=== PATIENT | male | born 1935 | race Caucasian/White ===

== ENCOUNTER 2016-11-16 22:30 | Observation (INO) | payer OTHER ==
[~2016-11-16] VITALS: Ht 162.6 cm; Wt 70.5 kg
[2016-11-16 22:30] VITALS: BP 118/61; PULSE 56; RESP 18; O2SAT 96
[~2016-11-16 22:30] MED LIST: ACET325 PO; ALBU6.7H INH; ASPI325T PO; CELE20TA PO; DONE10TA14 PO; FLON0.053; METO100T9 PO; NIFE30TA2 PO; NITR.4 SL; REME15TA PO; ULTR50TA PO; ZOCO40TA PO
[2016-11-16 22:41] VITALS: BP 118/61; PULSE 56; RESP 18; TEMP 98.4; O2SAT 93
[2016-11-16] MEDS ORDERED: DONE10TA7 PO (22:54)
[2016-11-16] MEDS ORDERED: ASPI325T PO (22:54)
[2016-11-16] MEDS ORDERED: ATOR40TA16 PO (22:54)
[2016-11-16] MEDS ORDERED: FLUT1SPR5 EACH NARE (22:54)
[2016-11-16] MEDS ORDERED: ALBU6.7H INH (22:54)
[2016-11-16] MEDS ORDERED: METO50TA11 PO (22:54)
[2016-11-16] MEDS ORDERED: REME15TA PO (22:54)
[2016-11-16] MEDS ORDERED: NITR1SUB3 SL (22:54)
[2016-11-16] MEDS ORDERED: ZOCO40TA PO (22:54)
[2016-11-16] MEDS ORDERED: CELE10TA PO (22:54)
[2016-11-16 22:57] VITALS: O2SAT 96
[2016-11-16 23:00] VITALS: BP 119/57; PULSE 56; RESP 16; O2SAT 96
[2016-11-16] MEDS ORDERED: MORPHINE SULFATE 4 MG/ML INJ IV PUSH ONE (23:00)
[2016-11-16] MEDS ORDERED: ASPIRIN 81 MG CHEW TAB PO ONE (23:00)
[2016-11-16] MEDS ORDERED: NITROGLYCERIN 2% OINT 1 GM PACKET TOP ONE (23:00)
[2016-11-16] MEDS: SODIUM CHLORIDE 0.9% FLUSH 10 ML FLUSH IVF PRN (23:08)
--- NOTE | 2016-11-16 23:19 | RADRPT ---
EXAM DATE/TIME: 11/16/2016 22:59 [facility] COMPARISON: CHEST SINGLE AP, April 14, 2015, 9:05. INDICATIONS : Chest pain. MEDICAL HISTORY : Chronic obstructive pulmonary disease. Asthma. SURGICAL HISTORY : Carotid stent. ENCOUNTER: Initial ACUITY: 1 day PAIN SCORE: 8/10 LOCATION: Bilateral chest FINDINGS: A single view of the chest demonstrates the lungs to be symmetrically aerated and clear biapical capp ing. A 1 cm dense nodule projects over the left apex. Lungs are otherwise clear with minimal atelecta tic changes above the hemidiaphragms. No effusions. Heart size is normal. Osseous structures are inta ct with degenerative spurring of the dorsal spine. CONCLUSION: 1. Biapical capping with a dense 1 cm nodule projecting over the left apex. Increased density suggest s a bony origin. 2. Except for some minimal atelectatic changes above the hemidiaphragms, lungs are otherwise clear. Erik Fay MD on November 16, 2016 at 23:11 Board Certified Radiologist. This report was verified electronically.
[2016-11-16 23:27] LABS: AUTOMATED NEUTROPHIL # 3.1 TH/MM3 (1.8-7.7); BASOPHIL # 0.1 TH/MM3 (0-0.2); BASOPHIL % 1.1 % (0.0-2.0); EOSINOPHIL # 0.5 TH/MM3 (0-0.4); EOSINOPHIL % 7.7 % (0.0-4.0); HEMATOCRIT 31.8 % (39.0-51.0); HEMO FLAGS DIFF FINAL; LYMPH % 24.9 % (9.0-44.0); LYMPHOCYTE # 1.5 TH/MM3 (1.0-4.8); MEAN CELL VOLUME 93.2 FL (80.0-100.0); MEAN CORPUSCULAR HEMOGLOBIN 31.4 PG (27.0-34.0); MEAN CORPUSCULAR HGB CONC 33.7 % (32.0-36.0); MONO % 13.6 % (0.0-8.0); NEUT % 52.7 % (16.0-70.0); PLATELET COUNT 144 TH/MM3 (150-450); RED BLOOD COUNT 3.41 MIL/MM3 (4.50-5.90); RED CELL DISTRIBUTION WIDTH 14.2 % (11.6-17.2); WHITE BLOOD COUNT 5.9 TH/MM3 (4.0-11.0)
[2016-11-16 23:40] LABS: ANION GAP 5 MEQ/L (5-15); BICARBONATE 29.8 MEQ/L (21.0-32.0); BLOOD UREA NITROGEN 29 MG/DL (7-18); CHLORIDE 109 MEQ/L (98-107); GLOMERULAR FILTRATION RATE 41 ML/MIN (>89); MAGNESIUM 2.1 MG/DL (1.5-2.5); POTASSIUM 4.2 MEQ/L (3.5-5.1); SODIUM (NA) 144 MEQ/L (136-145)
[2016-11-16 23:43] LABS: CREATINE KINASE 129 U/L (39-308)
[2016-11-16 23:52] LABS: APTT (PATIENT) 24.5 SEC (24.3-30.1); PROTHROMBIN TIME - PATIENT 10.7 SEC (9.8-11.6)
[2016-11-16 23:55] LABS: CKMB 2.5 NG/ML (0.5-3.6)
--- NOTE | 2016-11-17 00:19 | PD ---
HPI . Chest pain Chief Complaint: Chest Pain Time Seen by Provider: 22:47 Travel History International Travel<30 days: No Contact w/Intl Traveler<30days: No Traveled to known affect area: No History of Present Illness HPI This patient presents with a chief complaint of chest pain. Onset was one hour ago. He rates it as 7-8/10. He describes it as a pressure-like sensation. He has associated numbness and tingling in his left hand. He has had some nausea and shortness of breath which are improving. He was treated prior to arrival with sublingual not glycerin 3 without relief. He states that he has been off of his aspirin for the last 6 days because of an impending epidural injection. He states that the pain awakened him from sleep. He notes no modifying factors. PFSH Past Medical History Arthritis: Yes Asthma: Yes Blood Disorders: No Anxiety: Yes Depression: Yes Heart Rhythm Problems: No Cancer: No Cardiac Catheterization: Yes Cardiovascular Problems: No High Cholesterol: Yes Chest Pain: Yes Congestive Heart Failure: No COPD: Yes Coronary Artery Disease: Yes Dementia: Yes Diabetes: No Diminished Hearing: No Endocrine: No Gastrointestinal Disorders: Yes GERD: Yes Genitourinary: Yes (KIDNEY FUNCTION DECREASED) Hiatal Hernia: Yes Immune Disorder: No Implanted Vascular Access Dvce: Yes Musculoskeletal: Yes Neurologic: Yes Psychiatric: No Reproductive: No Respiratory: Yes Immunizations Current: Yes Myocardial Infarction: Yes PNEUMOCCOCAL Vaccine (Year): 1 Past Surgical History Abdominal Surgery: Yes (HERNIA REPAIR) Body Medical Devices: pt has 5 stents Cardiac Surgery: Yes (stents) Coronary Artery Bypass Graft: No Other Surgery: Yes Social History Alcohol Use: No Tobacco Use: No Substance Use: No Allergies-Medications (Allergen,Severity, Reaction): Coded Allergies: No Known Allergies (Verified , 11/16/16) Reported Meds & Prescriptions Reported Meds & Active Scripts Active Reported Celexa (Citalopram Hydrobromide) 10 Mg Tab 30 Mg PO DAILY Donepezil 10 Mg Tab 10 Mg PO HS Flonase Nasal [place] (Fluticasone Nasal [place]) 50 Mcg/Act [place] 50 Mcg EACH NARE BID Metoprolol Succinate ER 24 HR (Metoprolol Succinate) 50 Mg Tab 50 Mg PO DAILY Remeron (Mirtazapine) 15 Mg Tab 15 Mg PO HS Aspirin 325 Mg Tab 325 Mg PO DAILY Proventil Hfa 6.7 GM Inh (Albuterol Sulfate) 90 Mcg/Act Aer 2 Puff INH Q4-6H PRN Nitroglycerin SL (Nitroglycerin) 0.4 Mg Subl 0.4 Mg SL DIRECTED PRN ONE TABLET UNDER THE TONGUE NEEDED FOR CHEST PAIN, MAY REPEAT EVERY FIVE MINUTES FOR A TOTAL OF 3 DOSES OR CALL 911 IF NO RELIEF Atorvastatin (Atorvastatin Calcium) 40 Mg Tab 40 Mg PO HS Review of Systems Except as stated in HPI: all other systems reviewed are Neg Cardiovascular: Positive: Chest Pain or Discomfort Respiratory: Positive: Shortness of Breath Gastrointestinal: Positive: Nausea, No: Vomiting Musculoskeletal: Positive: Pain Physical Exam Narrative GENERAL: Awake and alert and in no acute distress. SKIN: Warm and dry. HEAD: Atraumatic. Normocephalic. EYES: Pupils equal and round. Extraocular movements are intact. ENT: No nasal bleeding or discharge. Mucous membranes pink and moist. NECK: Trachea midline. Neck is supple. CARDIOVASCULAR: Regular rate and rhythm. Heart sounds are normal. RESPIRATORY: No accessory muscle use. Lungs are clear with good air movement throughout. Chest wall is nontender. GASTROINTESTINAL: Abdomen soft, non-tender, nondistended. MUSCULOSKELETAL: No obvious deformities. No edema. NEUROLOGICAL: Awake and alert. No obvious cranial nerve deficits. Motor grossly within normal limits. Normal speech. PSYCHIATRIC: Appropriate mood and affect; insight and judgment normal. Data Data Last Documented VS Vital Signs Date Time Temp Pulse Resp B/P Pulse Ox O2 Delivery O2 Flow Rate FiO2 11/16/16 22:57 96 Room Air 11/16/16 22:41 98.4 56 18 118/61 Orders Basic Metabolic Panel (Bmp) (11/16/16 22:48) Ckmb (Isoenzyme) Profile (11/16/16 22:48) Complete Blood Count With Diff (11/16/16 22:48) Magnesium (Mg) (11/16/16 22:48) Prothrombin Time / Inr (Pt) (11/16/16 22:48) Act Partial Throm Time (Ptt) (11/16/16 22:48) Troponin I (11/16/16 22:48) Chest, Single Ap (11/16/16 22:48) Ecg Monitoring (11/16/16 22:48) Iv Access Insert/Monitor (11/16/16 22:48) Oximetry (11/16/16 22:48) Oxygen Administration (11/16/16 22:48) Aspirin Chew (Aspirin Chew) (11/16/16 23:00) Morphine Inj (Morphine Inj) (11/16/16 23:00) Nitroglycerin 2% Oint (Nitroglycerin 2% (11/16/16 23:00) Sodium Chloride 0.9% Flush (Ns Flush) (11/16/16 23:00) CKMB (11/16/16 22:55) CKMB% (11/16/16 22:55) Labs Laboratory Tests Test 11/16/16 22:55 White Blood Count 5.9 TH/MM3 Red Blood Count 3.41 MIL/MM3 Hemoglobin 10.7 GM/DL Hematocrit 31.8 % Mean Corpuscular Volume 93.2 FL Mean Corpuscular Hemoglobin 31.4 PG Mean Corpuscular Hemoglobin 33.7 % Concent Red Cell Distribution Width 14.2 % Platelet Count 144 TH/MM3 Mean Platelet Volume 8.9 FL Neutrophils (%) (Auto) 52.7 % Lymphocytes (%) (Auto) 24.9 % Monocytes (%) (Auto) 13.6 % Eosinophils (%) (Auto) 7.7 % Basophils (%) (Auto) 1.1 % Neutrophils # (Auto) 3.1 TH/MM3 Lymphocytes # (Auto) 1.5 TH/MM3 Monocytes # (Auto) 0.8 TH/MM3 Eosinophils # (Auto) 0.5 TH/MM3 Basophils # (Auto) 0.1 TH/MM3 CBC Comment DIFF FINAL Differential Comment Prothrombin Time 10.7 SEC Prothromb Time International 1.0 RATIO Ratio Activated Partial 24.5 SEC Thromboplast Time Sodium Level 144 MEQ/L Potassium Level 4.2 MEQ/L Chloride Level 109 MEQ/L Carbon Dioxide Level 29.8 MEQ/L Anion Gap 5 MEQ/L Blood Urea Nitrogen 29 MG/DL Creatinine 1.62 MG/DL Estimat Glomerular Filtration 41 ML/MIN Rate Random Glucose 97 MG/DL Calcium Level 8.2 MG/DL Magnesium Level 2.1 MG/DL Total Creatine Kinase 129 U/L Creatine Kinase MB 2.5 NG/ML Troponin I LESS THAN 0.02 NG/ML MDM Medical Decision Making Medical Screen Exam Complete: Yes Emergency Medical Condition: Yes Medical Record Reviewed: Yes (this patient had a negative nuclear stress test on 04/15/15.) Interpretation(s) EKG showed a normal sinus rhythm with no acute ischemic changes. His EKG was unchanged from previous. Differential Diagnosis Differential diagnosis of chest pain includes but is not limited to musculoskeletal pain, pulmonary embolism, acute coronary syndrome, pneumonia, pleurisy Narrative Course This patient presents with a chief complaint of chest pain. He has reported known history of coronary artery disease. He did have a negative nuclear stress test about a urinary half ago. His chest pain wasn't not relieved by nitroglycerin prior to arrival. He has had a routine cardiac workup. The workup is negative. He will be admitted to the chest pain center for further evaluation and treatment. Diagnosis Primary Impression: Chest pain Qualified Code: R07.9 - Chest pain, unspecified type Admitting Information Admitting Physician Requests: Observation Condition: Stable Mariela Barrios MD Nov 17, 2016 00:19
[2016-11-17 00:30] VITALS: BP 111/58; PULSE 55; RESP 16; O2SAT 96
[2016-11-17] MEDS ORDERED: MORPHINE SULFATE 8 MG/ML INJ IV PUSH PRN (00:30)
[2016-11-17] MEDS ORDERED: ONDANSETRON HCL 4 MG/2 ML VIAL IV PRN (00:30)
[2016-11-17] MEDS ORDERED: SODIUM CHLORIDE 0.9% FLUSH 10 ML FLUSH IVF PRN (00:30)
[2016-11-17] MEDS ORDERED: SODIUM CHLORIDE 0.9% FLUSH 10 ML FLUSH IV FLUSH SCH (00:30)
[2016-11-17] MEDS ORDERED: SODIUM CHLORIDE 0.9% FLUSH 10 ML FLUSH IV FLUSH PRN (00:30)
[2016-11-17] MEDS: SODIUM CHLORIDE 0.9% FLUSH 10 ML FLUSH IV FLUSH SCH ×3 (00:57→09:01)
[2016-11-17] MEDS: SODIUM CHLORIDE 0.9% FLUSH 10 ML FLUSH IVF PRN (00:57)
[2016-11-17 02:03] VITALS: BP 117/65; PULSE 63; RESP 20; TEMP 97.6; O2SAT 94
[2016-11-17 03:03] LABS: CREATINE KINASE 116 U/L (39-308)
[2016-11-17 03:15] LABS: CKMB 2.3 NG/ML (0.5-3.6)
[2016-11-17 04:00] VITALS: PULSE 55
[2016-11-17] MEDS ORDERED: MORPHINE SULFATE 4 MG/ML INJ IV PRN ×2 (05:30→06:00)
[2016-11-17] MEDS ORDERED: ACETAMINOPHEN 500 MG CPLT PO PRN (05:30)
[2016-11-17] MEDS ORDERED: ACETAMINOPHEN/HYDROcodone 325 MG/5 MG TAB PO PRN (05:45)
[2016-11-17 06:12] LABS: CREATINE KINASE 112 U/L (39-308)
[2016-11-17 06:25] LABS: CKMB 2.3 NG/ML (0.5-3.6)
[2016-11-17 07:38] VITALS: BP 102/56; PULSE 55; RESP 16; TEMP 98; O2SAT 95
[2016-11-17 07:50] VITALS: O2SAT 93
[2016-11-17 11:00] VITALS: BP 110/55; PULSE 52; RESP 17; TEMP 98.7; O2SAT 94
--- NOTE | 2016-11-17 13:16 | HHI.HP ---
HPI Primary Care Physician Non-Staff Chief Complaint Chest pain History of Present Illness This is a 81-year-old male with history of CAD and stents presents to ED with a complaint of chest discomfort. He states it began yesterday. In some fresh trimming. He cannot and waking from his nap he developed 3 quick pains left- sided chest and that discomfort and turned into a heaviness which lasted for several hours. He was short of breath, nauseous, and diaphoretic. States it is similar to when needing stents in the past. He follows Dr. Pitts cardiology on an outpatient basis and cannot recall recent stress testing in the office. However upon review records she had a nonischemic Lexiscan March 2015 at this facility. He had a catheter in 2011 showing disease but also showing patent stent. Denies recent illness. Denies fevers or chills. Review of Systems General: Patient denies fevers, chills recent, and recent travel HEENT: Patient denies headache, sore throat, difficulty swallowing. Cardiovascular: Has the chest discomfort as mentioned above. Denies sensation of heart beating rapidly or irregularly. No syncope. He was diaphoretic Respiratory: He was short of breath. Denies inspirational chest discomfort. Denies coughing wheezing or hemoptysis. GI: He was nauseous. Patient denies vomiting, diarrhea, abdominal pain, bloody stools. Musculoskeletal: Patient denies joint pain or edema. Denies calf pain or edema. Neurovascular: Patient denies numbness, tingling, weakness in extremities. Denies headache. Endocrine: Denies polyuria and polydipsia. Hematologic: Denies easy bruising. Skin: Denies rash or itching. Past Family Social History Allergies: Coded Allergies: No Known Allergies (Verified , 11/16/16) Past Medical History Coronary disease with stenting. Past history tobacco abuse but quit smoking in 1988. Hypertension, hyperlipidemia. Denies diabetes. Past Surgical History Heart catheterizations with interventions. Hernia repair. Reported Medications Reported Meds & Active Scripts Active Reported Celexa (Citalopram Hydrobromide) 10 Mg Tab 30 Mg PO DAILY Donepezil 10 Mg Tab 10 Mg PO HS Flonase Nasal [place] (Fluticasone Nasal [place]) 50 Mcg/Act [place] 50 Mcg EACH NARE BID Metoprolol Succinate ER 24 HR (Metoprolol Succinate) 50 Mg Tab 50 Mg PO DAILY Remeron (Mirtazapine) 15 Mg Tab 15 Mg PO HS Aspirin 325 Mg Tab 325 Mg PO DAILY Proventil Hfa 6.7 GM Inh (Albuterol Sulfate) 90 Mcg/Act Aer 2 Puff INH Q4-6H PRN Nitroglycerin SL (Nitroglycerin) 0.4 Mg Subl 0.4 Mg SL DIRECTED PRN ONE TABLET UNDER THE TONGUE NEEDED FOR CHEST PAIN, MAY REPEAT EVERY FIVE MINUTES FOR A TOTAL OF 3 DOSES OR CALL 911 IF NO RELIEF Atorvastatin (Atorvastatin Calcium) 40 Mg Tab 40 Mg PO HS Active Ordered Medications Current Medications Medications (Trade) Dose Ordered Sig/Marce Route Start Time Stop Time Status Last Admin (NS Flush) 2 ml UNSCH PRN IVF 11/16/16 23:00 11/17/16 00:57 (Zofran Inj) 4 mg Q6H PRN IV 11/17/16 00:30 11/17/16 00:57 (NS Flush) 2 ml BID IV FLUSH 11/17/16 00:30 11/17/16 00:57 (Tylenol) 1,000 mg Q8H PRN PO 11/17/16 05:30 ([place] 5-325 Mg) 1 tab Q6H PRN PO 11/17/16 05:45 (Morphine Inj) 2 mg Q2H PRN IV 11/17/16 06:00 Family History There is family history of CAD. Social History Patient quit smoking 1988 but prior that he smoked one pack of cigarettes daily 35 years. Denies alcohol or illicit drugs. He lives with his . Physical Exam Vital Signs Vital Signs Date Time Temp Pulse Resp B/P (MAP) Pulse Ox O2 Delivery O2 Flow Rate FiO2 11/17/16 07:50 93 21 11/17/16 07:38 98.0 55 16 102/56 (71) 95 11/17/16 04:00 55 11/17/16 02:08 18 11/17/16 02:03 97.6 63 20 117/65 (82) 94 11/17/16 00:30 55 16 111/58 (75) 96 Room Air 11/16/16 23:00 56 16 119/57 (77) 96 Room Air 11/16/16 22:57 96 Room Air 11/16/16 22:57 96 Room Air 11/16/16 22:41 98.4 56 18 118/61 (80) 93 11/16/16 22:30 56 18 118/61 (80) 96 Room Air Physical Exam GENERAL: This is a well-nourished, well-developed patient, in no apparent distress. Patient speaks in clear complete sentences. Patient is pleasant. HEENT: Head is atraumatic and normocephalic. Neck is supple without lymphadenopathy and trachea is midline. No JVD or carotid bruits. CARDIOVASCULAR: Regular rate and rhythm without murmurs, gallops, or rubs. RESPIRATORY: Clear to auscultation. Breath sounds equal bilaterally. No wheezes , rales, or rhonchi. Chest wall is nontender. No use of accessory muscles. GASTROINTESTINAL: Abdomen is nontender, nondistended. Abdomen soft. No obvious pulsatile mass or bruit. No CVA tenderness. Strong femoral pulses bilaterally. Normal bowel sounds in all quadrants. MUSCULOSKELETAL: Patient is moving upper and lower extremities freely. No calf tenderness or edema, no Homans sign. Strong pulses in upper and lower extremities. NEUROLOGICAL: Patient is alert and oriented. Cranial nerves 2-12 are grossly intact. No focal deficits and speech is clear. SKIN: No rash and turgor is normal. Laboratory Laboratory Tests Test 11/16/16 22:55 11/17/16 02:00 11/17/16 04:51 White Blood Count 5.9 Red Blood Count 3.41 Hemoglobin 10.7 Hematocrit 31.8 Mean Corpuscular Volume 93.2 Mean Corpuscular Hemoglobin 31.4 Mean Corpuscular Hemoglobin Concent 33.7 Red Cell Distribution Width 14.2 Platelet Count 144 Mean Platelet Volume 8.9 Neutrophils (%) (Auto) 52.7 Lymphocytes (%) (Auto) 24.9 Monocytes (%) (Auto) 13.6 Eosinophils (%) (Auto) 7.7 Basophils (%) (Auto) 1.1 Neutrophils # (Auto) 3.1 Lymphocytes # (Auto) 1.5 Monocytes # (Auto) 0.8 Eosinophils # (Auto) 0.5 Basophils # (Auto) 0.1 CBC Comment DIFF FINAL Differential Comment Prothrombin Time 10.7 Prothromb Time International Ratio 1.0 Activated Partial Thromboplast Time 24.5 Blood Urea Nitrogen 29 Creatinine 1.62 Random Glucose 97 Calcium Level 8.2 Magnesium Level 2.1 Sodium Level 144 Potassium Level 4.2 Chloride Level 109 Carbon Dioxide Level 29.8 Anion Gap 5 Estimat Glomerular Filtration Rate 41 Total Creatine Kinase 129 116 112 Creatine Kinase MB 2.5 2.3 2.3 Troponin I LESS THAN 0.02 LESS THAN 0.02 LESS THAN 0.02 Result Diagram: 11/16/16225411/16/162254 Imaging Last 48 hours Impressions Chest X-Ray 11/16/162247 Signed Impressions: Service Date/Time: Wednesday, November 16, 2016 22:59 - CONCLUSION: 1. Biapical capping with a dense 1 cm nodule projecting over the left apex. Increased density suggests a bony origin. 2. Except for some minimal atelectatic changes above the hemidiaphragms, lungs are otherwise clear. Erik Fay MD Course EKGs have sinus rhythm without significant ST segment depressions or elevations. Caprini VTE Risk Assessment Caprini VTE Risk Assessment: Mod/High Risk (score >= 2) Caprini Risk Assessment Model Point Value = 1 Point Value = 2 Point Value = 3 Point Value = 5 Age 41-60 Minor surgery BMI > 25 kg/m2 Swollen legs Varicose veins or History of unexplained or recurrent spontaneous Oral contraceptives or hormone replacement Sepsis (< 1 month) Serious lung disease, including pneumonia (< 1 month) Abnormal pulmonary function Acute myocardial infarction Congestive heart failure (< 1 month) History of inflammatory bowel disease Medical patient at bed rest Age 61-74 Arthroscopic surgery Major open surgery (> 45 min) Laparoscopic surgery (> 45 min) Malignancy Confined to bed (> 72 hours) Immobilizing plaster cast Central venous access Age >= 75 History of VTE Family history of VTE Factor V Leiden Prothrombin [id number] Lupus anticoagulant Anticardiolipin antibodies Elevated serum homocysteine Heparin-induced thrombocytopenia Other congenital or acquired thrombophilia Stroke (< 1 month) Elective arthroplasty Hip, pelvis, or leg fracture Acute spinal cord injury (< 1 month) Prophylaxis Regimen Total Risk Factor Score Risk Level Prophylaxis Regimen 0-1 Low Early ambulation 2 Moderate Order ONE of the following: *Sequential Compression Device (SCD) *Heparin 5000 units SQ BID 3-4 Higher Order ONE of the following medications: *Heparin 5000 units SQ TID *Enoxaparin/Lovenox 40 mg SQ daily (WT < 150 kg, CrCl > 30 mL/min) *Enoxaparin/Lovenox 30 mg SQ daily (WT < 150 kg, CrCl > 10-29 mL/min) *Enoxaparin/Lovenox 30 mg SQ BID (WT < 150 kg, CrCl > 30 mL/min) AND/OR *Sequential Compression Device (SCD) 5 or more Highest Order ONE of the following medications: *Heparin 5000 units SQ TID (Preferred with Epidurals) *Enoxaparin/Lovenox 40 mg SQ daily (WT < 150 kg, CrCl > 30 mL/min) *Enoxaparin/Lovenox 30 mg SQ daily (WT < 150 kg, CrCl > 10-29 mL/min) *Enoxaparin/Lovenox 30 mg SQ BID (WT < 150 kg, CrCl > 30 mL/min) AND *Sequential Compression Device (SCD) Assessment and Plan Assessment and Plan * Chest pain: Patient does have history of CAD. He has had serial cardiac enzymes and EKGs for ruling out purposes and will be seen by Dr. Locke of cardiology in the chest pain center. 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 * Hypertension: Continue current medication. * Hyperlipidemia: Continue current medication. Patient is stable at this time. He is agreeable to this plan. Mariusz Ramírez Nov 17, 2016 13:16
[2016-11-17] MEDS ORDERED: REGADENOSON INJ 0.4 MG/5 ML SYR ONE (13:17)
--- NOTE | 2016-11-17 14:50 | RADRPT ---
EXAM DATE/TIME: 11/17/2016 12:39 [facility] COMPARISON: MYOCARDIAL PERF PHARM SPECT, GATED W/EF, April 15, 2015, 9:24. INDICATIONS : Chest pain with tingling in the left hand, nausea and dyspnea. Angina. DOSE: 25.7 mCi Tc99m Myoview at stress. 8.7 mCi Tc99m Myoview at rest. 0.4 mg Lexiscan STRESS SYMPTOMS: Dyspnea, lightheadedness and headache. EJECTION FRACTION: 67% MEDICAL HISTORY : Myocardial infarction. Chronic obstructive pulmonary disease. Hypercholesterolemia. Renal failure. SURGICAL HISTORY : Coronary artery stent. Hiatal hernia repair. ENCOUNTER: Initial ACUITY: 1 day PAIN SCALE: 8/10 LOCATION: chest TECHNIQUE: The patient underwent pharmacologic stress with infusion of prescribed dose. Continuous ECG tracing was monitored during stress. Gated SPECT imaging was performed after stress and conventional SPECT i maging was performed at rest. The examination was performed on a SPECT/CT scanner, both attenuation and non-corrected datasets were reviewed. FINDINGS: DISTRIBUTION: The maximum perfused segment at stress is in the inferolateral wall. PERFUSION STUDY: The pattern of perfusion at stress is within normal limits, with the exception of small area of mild reversibility within the lateral wall towards the base GATED STUDY: There is intact wall motion and thickening without hypokinetic or dyskinetic segments. CONCLUSION: 1. Small area of mild reversibility in the lateral wall towards the base. 2. Ejection fraction 67%. RISK CATEGORY: Low (<1% Annual Mortality Rate) Patrice Moore MD on November 17, 2016 at 14:45 Board Certified Radiologist. This report was verified electronically.
[2016-11-17] MEDS ORDERED: AMLO2.5T PO (16:05)
--- NOTE | 2016-11-17 16:07 | HHI.DCPOC ---
Discharge Care Plan Diagnosis: (1) Hypertension (2) Chest pain (3) Hx of coronary artery disease (4) H/O heart artery stent (5) Hyperlipidemia (6) CRI (chronic renal insufficiency) Goals to Promote Your Health * To prevent worsening of your condition and complications * To maintain your health at the optimal level Directions to Meet Your Goals Take your medications as prescribed Follow your dietary instruction Follow activity as directed Keep your appointments as scheduled Take your immunizations and boosters as scheduled If your symptoms worsen call your PCP, if no PCP go to Urgent Care Center or Emergency Room Smoking is Dangerous to Your Health. Avoid second hand smoke Call the 24-hour hour crisis hotline for domestic abuse at Mariusz Ramírez Nov 17, 2016 16:07
--- NOTE | 2016-11-17 16:28 | EKG ---
Date Performed: 11/16/2016 Time Performed: 22:44:37 PTAGE: 81 years EKG: SINUS BRADYCARDIA NONSPECIFIC T-WAVE ABNORMALITY BORDERLINE ECG PREVIOUS TRACING : 04/14/2015 16.01 Since previous tracing, no significant change noted DOCTOR: Holland Locke Interpretating Date/Time 11/17/2016 16:27:44
--- NOTE | 2016-11-17 16:28 | EKG ---
Date Performed: 11/17/2016 Time Performed: 01:56:13 PTAGE: 81 years EKG: SINUS BRADYCARDIA POSSIBLE RIGHT VENTRICULAR CONDUCTION DELAY NONSPECIFIC T-WAVE ABNORMALIT Y BORDERLINE ECG PREVIOUS TRACING : 11/16/2016 22.44 Since previous tracing, no significant change noted DOCTOR: Holland Locke Interpretating Date/Time 11/17/2016 16:27:12
--- NOTE | 2016-11-17 16:37 | EKG ---
Date Performed: 11/17/2016 Time Performed: 05:15:17 PTAGE: 81 years EKG: SINUS BRADYCARDIA POSSIBLE RIGHT VENTRICULAR CONDUCTION DELAY NONSPECIFIC T-WAVE ABNORMALIT Y BORDERLINE ECG PREVIOUS TRACING : 11/17/2016 01.56 Since previous tracing, no significant change noted DOCTOR: Holland Locke Interpretating Date/Time 11/17/2016 16:36:00
--- NOTE | 2016-11-18 13:47 | TR ---
Date Performed: 11/17/2016 Time Performed: 13:28:55 DOCTOR: Holland Locke DRUG LIST: CLINICAL HISTORY: CHEST PAIN CHEST PAIN REASON FOR TEST: CHEST PAIN REASON FOR ENDING: OBSERVATION: CONCLUSION: Lexiscan stress test was performed under standard four minute protocol. [place] e was injected one minute prior to ending the test. No electrocardiographic abormalities were present to suggest ischemia. Nuclear imaging and interpretation are pending. COMMENTS:
== END 2016-11-17 16:48 | disposition home or self-care (01) ==
LOC: NEPE 22:30 → NEDA 11-17 00:28 → NEPFCDU 11-17 01:38
DX: R07.89 Other chest pain (principal); I25.10 Atherosclerotic heart disease of native coronary artery without angina pectoris; E78.5 Hyperlipidemia, unspecified; I13.0 Hypertensive heart and chronic kidney disease with heart failure and stage 1 through stage 4 chronic kidney disease, or unspecified chronic kidney disease; I50.9 Heart failure, unspecified; N18.9 Chronic kidney disease, unspecified; R94.31 Abnormal electrocardiogram [ECG] [EKG]; I25.2 Old myocardial infarction; M19.90 Unspecified osteoarthritis, unspecified site; I83.90 Asymptomatic varicose veins of unspecified lower extremity; J44.9 Chronic obstructive pulmonary disease, unspecified; D75.82 Heparin induced thrombocytopenia (HIT); F03.90 Unspecified dementia, unspecified severity, without behavioral disturbance, psychotic disturbance, mood disturbance, and anxiety; K21.9 Gastro-esophageal reflux disease without esophagitis; Z95.5 Presence of coronary angioplasty implant and graft; Z87.891 Personal history of nicotine dependence; Z79.82 Long term (current) use of aspirin; Z79.899 Other long term (current) drug therapy; Z74.01 Bed confinement status
CPT/HCPCS: 71010; 78452; 80048; 82550; 82552; 83735; 84484; 85025; 85610; 85730; 93005; 93017; 96374; 99285; A9502; G0378; J2270; J2405; J2785

== ENCOUNTER 2017-04-02 17:54 | Observation (INO) | payer OTHER ==
[~2017-04-02] VITALS: Ht 152.4 cm; Wt 68.0 kg
[~2017-04-02 17:54] MED LIST changes: -ACET325 PO; +AMLO2.5T PO; +ASPI-183 PO; -ASPI325T PO; +ATOR40TA16 PO; +CELE10TA PO; -CELE20TA PO; -DONE10TA14 PO; +DONE10TA7 PO; -FLON0.053; +FLUT1SPR5 EACH NARE; -METO100T9 PO; +METO1TAB9 PO; -NIFE30TA2 PO; -NITR.4 SL; +NITR1SUB3 SL; -ULTR50TA PO; -ZOCO40TA PO
[2017-04-02 18:00] VITALS: BP 122/60; PULSE 61; RESP 16; TEMP 98.4; O2SAT 93
[2017-04-02] MEDS ORDERED: SODIUM CHLORIDE 0.9% FLUSH 10 ML FLUSH IVF PRN (18:45)
[2017-04-02 19:00] VITALS: BP 118/57; PULSE 64; RESP 15; O2SAT 98
[2017-04-02 19:13] LABS: AUTOMATED NEUTROPHIL # 3.8 TH/MM3 (1.8-7.7); BASOPHIL # 0.1 TH/MM3 (0-0.2); EOSINOPHIL # 0.3 TH/MM3 (0-0.4); EOSINOPHIL % 4.5 % (0.0-4.0); HEMATOCRIT 36.2 % (39.0-51.0); HEMOGLOBIN 12.2 GM/DL (13.0-17.0); LYMPH % 18.2 % (9.0-44.0); LYMPHOCYTE # 1.1 TH/MM3 (1.0-4.8); MEAN CELL VOLUME 93.2 FL (80.0-100.0); MEAN CORPUSCULAR HEMOGLOBIN 31.4 PG (27.0-34.0); MEAN CORPUSCULAR HGB CONC 33.7 % (32.0-36.0); MONO % 12.4 % (0.0-8.0); MONOCYTE # 0.7 TH/MM3 (0-0.9); NEUT % 63.9 % (16.0-70.0); PLATELET COUNT 170 TH/MM3 (150-450); RED BLOOD COUNT 3.89 MIL/MM3 (4.50-5.90); RED CELL DISTRIBUTION WIDTH 13.8 % (11.6-17.2); WHITE BLOOD COUNT 5.9 TH/MM3 (4.0-11.0)
[2017-04-02 19:27] LABS: ALBUMIN 3.6 GM/DL (3.4-5.0); AST (GOT) 20 U/L (15-37); BLOOD UREA NITROGEN 33 MG/DL (7-18); CALCIUM 8.8 MG/DL (8.5-10.1); CREATININE 1.76 MG/DL (0.60-1.30); GLOMERULAR FILTRATION RATE 38 ML/MIN (>89); GLUCOSE,RANDOM 109 MG/DL (74-106); MAGNESIUM 2.1 MG/DL (1.5-2.5)
[2017-04-02 19:29] LABS: ALT (GPT) 24 U/L (12-78)
--- NOTE | 2017-04-02 19:30 | RADRPT ---
EXAM DATE/TIME: 04/02/2017 19:04 [facility] COMPARISON: CHEST SINGLE AP, November 16, 2016, 22:59. INDICATIONS : Chest pain starting today MEDICAL HISTORY : Chronic obstructive pulmonary disease. Asthma SURGICAL HISTORY : Carotid stent. ENCOUNTER: Initial ACUITY: 1 day PAIN SCORE: 6/10 LOCATION: Left chest FINDINGS: The lungs are clear without infiltrate, nodule, or mass. There is no appreciable pleural effusion fo r technique. Heart and mediastinum are unremarkable. CONCLUSION: No acute cardiopulmonary disease. Venice Zaragoza MD on April 02, 2017 at 19:28 Board Certified Radiologist. This report was verified electronically.
[2017-04-02 19:36] LABS: PROTHROMBIN TIME - PATIENT 10.1 SEC (9.8-11.6)
[2017-04-02 20:00] VITALS: BP 110/60; PULSE 64; RESP 16; O2SAT 97
--- NOTE | 2017-04-02 20:05 | PD ---
HPI Chief Complaint: Chest Pain Time Seen by Provider: 18:28 Travel History International Travel<30 days: No Contact w/Intl Traveler<30days: No Traveled to known affect area: No History of Present Illness HPI 81-year-old female patient presents emergency department via EMS after having acute onset chest pain. Patient states he was eating dinner at a local restaurant with pain started. Pain is left midclavicular region and radiates down his left arm. Patient describes pain as sharp and stabbing sensation and rates it at a 8 out of 10. 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 Patient states he thought he was having another heart attack. He felt nauseous and vomited during the upset chest pain. He took 0.4mg SL Nitro with the pain initially started. Upon arrival to the emergency department all symptoms of chest pain had resolved and the patient reports no pain at this time. Patient takes 325mg ASA daily and took his medications already. PFSH Past Medical History Arthritis: Yes Asthma: Yes Blood Disorders: No Anxiety: Yes Depression: Yes Heart Rhythm Problems: Yes Cancer: No Cardiac Catheterization: Yes Cardiovascular Problems: Yes High Cholesterol: Yes Chest Pain: Yes Congestive Heart Failure: No COPD: Yes Coronary Artery Disease: Yes Dementia: Yes Diabetes: No Diminished Hearing: No Endocrine: No Gastrointestinal Disorders: Yes GERD: Yes Genitourinary: Yes (KIDNEY FUNCTION DECREASED) Hiatal Hernia: Yes Hypertension: Yes Immune Disorder: No Implanted Vascular Access Dvce: Yes Musculoskeletal: Yes Neurologic: Yes Psychiatric: No Reproductive: No Respiratory: Yes Immunizations Current: Yes Myocardial Infarction: Yes PNEUMOCCOCAL Vaccine (Year): 1 Past Surgical History Abdominal Surgery: Yes (HERNIA REPAIR) Body Medical Devices: pt has 5 stents Cardiac Surgery: Yes (stents) Coronary Artery Bypass Graft: No Other Surgery: Yes Family History Family Myocardial Infarction: Yes Social History Alcohol Use: No Tobacco Use: No (smoker for about 30/40years) Substance Use: No Allergies-Medications (Allergen,Severity, Reaction): Coded Allergies: No Known Allergies (Verified , 11/16/16) Reported Meds & Prescriptions Reported Meds & Active Scripts Active Reported Celexa (Citalopram Hydrobromide) 10 Mg Tab 30 Mg PO DAILY Donepezil 10 Mg Tab 10 Mg PO HS Flonase Nasal [place] (Fluticasone Nasal [place]) 50 Mcg/Act [place] 50 Mcg EACH NARE BID Metoprolol Succinate ER 24 HR (Metoprolol Succinate) 50 Mg Tab 50 Mg PO DAILY Remeron (Mirtazapine) 15 Mg Tab 15 Mg PO HS Aspirin 325 Mg Tab 325 Mg PO DAILY Proventil Hfa 6.7 GM Inh (Albuterol Sulfate) 90 Mcg/Act Aer 2 Puff INH Q4-6H PRN Nitroglycerin SL (Nitroglycerin) 0.4 Mg Subl 0.4 Mg SL DIRECTED PRN ONE TABLET UNDER THE TONGUE NEEDED FOR CHEST PAIN, MAY REPEAT EVERY FIVE MINUTES FOR A TOTAL OF 3 DOSES OR CALL 911 IF NO RELIEF Atorvastatin (Atorvastatin Calcium) 40 Mg Tab 40 Mg PO HS Review of Systems Except as stated in HPI: all other systems reviewed are Neg Physical Exam Narrative GENERAL: Well-nourished, well-developed 81-year-old male in no acute distress. SKIN: Focused skin assessment pale/warm/dry. HEAD: Atraumatic. Normocephalic. EYES: Pupils equal and round. No scleral icterus. No injection or drainage. ENT: No nasal bleeding or discharge. Mucous membranes pink and moist. NECK: Trachea midline. No JVD. CARDIOVASCULAR: Regular rate and rhythm. No murmur appreciated. RESPIRATORY: No accessory muscle use. Clear to auscultation. Breath sounds equal bilaterally. GASTROINTESTINAL: Abdomen soft, non-tender, nondistended. Hepatic and splenic margins not palpable. MUSCULOSKELETAL: No obvious deformities. No clubbing. No cyanosis. No edema. NEUROLOGICAL: Awake and alert. No obvious cranial nerve deficits. Motor grossly within normal limits. Normal speech. PSYCHIATRIC: Appropriate mood and affect; insight and judgment normal. Data Data Last Documented VS Vital Signs Date Time Temp Pulse Resp B/P (MAP) Pulse Ox O2 Delivery O2 Flow Rate FiO2 04/02/17 20:00 64 16 110/60 (77) 97 Nasal Cannula 2.00 04/02/17 18:00 98.4 Orders Orders Electrocardiogram (04/02/17 18:38) Complete Blood Count With Diff (04/02/17 18:38) Comprehensive Metabolic Panel (04/02/17 18:38) Magnesium (Mg) (04/02/17 18:38) Prothrombin Time / Inr (Pt) (04/02/17 18:38) Act Partial Throm Time (Ptt) (04/02/17 18:38) Troponin I (04/02/17 18:38) Chest, Single Ap (04/02/17 18:38) Ecg Monitoring (04/02/17 18:38) Bilateral Bp Monitoring (04/02/17 18:38) Iv Access Insert/Monitor (04/02/17 18:38) Oximetry (04/02/17 18:38) Oxygen Administration (04/02/17 18:38) Sodium Chloride 0.9% Flush (Ns Flush) (04/02/17 18:45) Admit Order (Ed Use Only) (04/02/17 20:30) Labs Laboratory Tests Test 04/02/17 18:50 White Blood Count 5.9 TH/MM3 Red Blood Count 3.89 MIL/MM3 Hemoglobin 12.2 GM/DL Hematocrit 36.2 % Mean Corpuscular Volume 93.2 FL Mean Corpuscular Hemoglobin 31.4 PG Mean Corpuscular Hemoglobin Concent 33.7 % Red Cell Distribution Width 13.8 % Platelet Count 170 TH/MM3 Mean Platelet Volume 9.0 FL Neutrophils (%) (Auto) 63.9 % Lymphocytes (%) (Auto) 18.2 % Monocytes (%) (Auto) 12.4 % Eosinophils (%) (Auto) 4.5 % Basophils (%) (Auto) 1.0 % Neutrophils # (Auto) 3.8 TH/MM3 Lymphocytes # (Auto) 1.1 TH/MM3 Monocytes # (Auto) 0.7 TH/MM3 Eosinophils # (Auto) 0.3 TH/MM3 Basophils # (Auto) 0.1 TH/MM3 CBC Comment DIFF FINAL Differential Comment Prothrombin Time 10.1 SEC Prothromb Time International Ratio 1.0 RATIO Activated Partial Thromboplast Time 21.9 SEC Blood Urea Nitrogen 33 MG/DL Creatinine 1.76 MG/DL Random Glucose 109 MG/DL Total Protein 7.2 GM/DL Albumin 3.6 GM/DL Calcium Level 8.8 MG/DL Magnesium Level 2.1 MG/DL Alkaline Phosphatase 73 U/L Aspartate Amino Transf (AST/SGOT) 20 U/L Alanine Aminotransferase (ALT/SGPT) 24 U/L Total Bilirubin 0.3 MG/DL Sodium Level 139 MEQ/L Potassium Level 4.2 MEQ/L Chloride Level 104 MEQ/L Carbon Dioxide Level 28.0 MEQ/L Anion Gap 7 MEQ/L Estimat Glomerular Filtration Rate 38 ML/MIN Troponin I LESS THAN 0.02 NG/ML Exceptions Acute Myocardial Infarction ASA Not Given on Arrival: Already taken by patient MDM Medical Decision Making Medical Screen Exam Complete: Yes Emergency Medical Condition: Yes Differential Diagnosis Differential diagnoses include but are not limited to DC, arrhythmia, electrolyte abnormality, coronary spasm Narrative Course Patient place a monitor and IV obtained. Blood work sent to lab. CBC, CMP, magnesium, PT/INR, troponin ordered and pending. Chest x-ray ordered and pending. EKG ordered and interpreted. EKG shows sinus bradycardia with occasional PVCs. Heart rate 58. CBC shows hemoglobin 12.2 CMP shows BUN 33, creatinine 1.76, GFR 38 Troponin is less than 0.02 Magnesium is 2.1 PT/INR shows APTT 21.9 Chest x-ray shows no acute cardiopulmonary disease. Patient's medical records were reviewed and he has a stress test performed on November 17 of last year that showed no ischemic changes however due to his significant cardiac history and comorbidities it was advised by my attending, Dr. Polk to admit the patient to chest pain center for further observation. Patient is admitted to the chest pain center at this time. Diagnosis Primary Impression: Chest pain with high risk for cardiac etiology Admitting Information Admitting Physician Requests: Observation Shyann Vogt Apr 02, 2017 20:05
[2017-04-02 20:19] LABS: ALKALINE PHOSPHATASE 73 U/L (45-117); CHLORIDE 104 MEQ/L (98-107); SODIUM (NA) 139 MEQ/L (136-145); TOTAL BILIRUBIN ADULT 0.3 MG/DL (0.2-1.0); TOTAL PROTEIN 7.2 GM/DL (6.4-8.2); TROPONIN I LESS THAN 0.02 NG/ML (0.02-0.05)
[2017-04-02] MEDS ORDERED: SODIUM CHLORIDE 0.9% FLUSH 10 ML FLUSH IV FLUSH PRN (22:00)
[2017-04-02 22:05] VITALS: BP 121/63
[2017-04-02 22:52] LABS: TROPONIN I LESS THAN 0.02 NG/ML (0.02-0.05)
[2017-04-02 23:00] VITALS: PULSE 59
[2017-04-02 23:22] VITALS: BP 110/62; PULSE 67; RESP 18; TEMP 98.1; O2SAT 97
[2017-04-03 02:00] LABS: TROPONIN I LESS THAN 0.02 NG/ML (0.02-0.05)
[2017-04-03 03:33] VITALS: BP 117/58; PULSE 67; RESP 18; TEMP 98.1; O2SAT 97
[2017-04-03 07:01] VITALS: PULSE 64
[2017-04-03 07:19] VITALS: BP 119/57; PULSE 64; RESP 20; TEMP 98.2; O2SAT 96
[2017-04-03 07:59] VITALS: O2SAT 95
--- NOTE | 2017-04-03 08:59 | HHI.HP ---
HPI Primary Care Physician Unknown Chief Complaint Chest pain History of Present Illness This is a 81-year-old male with history of CAD with stents that presents to ED with a complaint of 2 episodes of chest discomfort yesterday. First episode began in the morning. Left side rating down left arm. Describe sharp. Almost immediately took a nitroglycerin which resolved discomfort quickly. No associated shortness of breath, nausea, or diaphoresis. Then the discomfort recurred while he was having dinner yesterday evening. He took another nitroglycerin. Soon later felt dizzy and then he states he passed out. When he woke back up. Vomited a couple times. The discomfort was gone. Denies sensation of being rapidly or irregularly. Denies headache. Denies headache or with the incident. States the discomfort does not feel similar to when eating a stent in the past. States he follows Dr. Pitts cardiology. Upon reviewing records last stress test was November 17, 2016 revealing a small area of mild reversibility lateral wall towards the base. Last cardiac catheterization was in 2011. LAD stent was patent RCA stent was patent. Circumflex had a 50% ostial stenosis. Medical management. Denies recent illness. Denies fevers or chills. States she's been compliant with his medications. Review of Systems General: Patient denies fevers, chills recent, and recent travel HEENT: Patient denies headache, sore throat, difficulty swallowing. Cardiovascular: Has the chest discomfort as mentioned above. Denies sensation of heart beating rapidly or irregularly. States he passed out after taking nitroglycerin. Denies diaphoresis. Respiratory: Denies shortness of breath or inspirational chest discomfort. Denies coughing wheezing or hemoptysis. GI: Patient denies nausea, vomiting, diarrhea, abdominal pain, bloody stools. Musculoskeletal: Patient denies joint pain or edema. Denies calf pain or edema. Neurovascular: Became dizzy has taken nitroglycerin and passed out. Patient denies numbness, tingling, weakness in extremities. Denies headache. Endocrine: Denies polyuria and polydipsia. Hematologic: Denies easy bruising. Skin: Denies rash or itching. Past Family Social History Allergies: Coded Allergies: No Known Allergies (Verified , 11/16/16) Past Medical History CAD with stents. Hypertension, hyperlipidemia, chronic kidney disease. Denies diabetes. Past Surgical History Cardiac catheterizations. He has had stents. Hernia repair. Reported Medications Reported Meds & Active Scripts Active Reported Celexa (Citalopram Hydrobromide) 10 Mg Tab 30 Mg PO DAILY Donepezil 10 Mg Tab 10 Mg PO HS Flonase Nasal [place] (Fluticasone Nasal [place]) 50 Mcg/Act [place] 50 Mcg EACH NARE BID Metoprolol Succinate ER 24 HR (Metoprolol Succinate) 50 Mg Tab 50 Mg PO DAILY Remeron (Mirtazapine) 15 Mg Tab 15 Mg PO HS Aspirin 325 Mg Tab 325 Mg PO DAILY Proventil Hfa 6.7 GM Inh (Albuterol Sulfate) 90 Mcg/Act Aer 2 Puff INH Q4-6H PRN Nitroglycerin SL (Nitroglycerin) 0.4 Mg Subl 0.4 Mg SL DIRECTED PRN ONE TABLET UNDER THE TONGUE NEEDED FOR CHEST PAIN, MAY REPEAT EVERY FIVE MINUTES FOR A TOTAL OF 3 DOSES OR CALL 911 IF NO RELIEF Atorvastatin (Atorvastatin Calcium) 40 Mg Tab 40 Mg PO HS Active Ordered Medications Current Medications Medications (Trade) Dose Ordered Sig/Marce Route Start Time Stop Time Status Last Admin (NS Flush) 2 ml UNSCH PRN IVF 04/02/17 18:45 (NS Flush) 2 ml UNSCH PRN IV FLUSH 04/02/17 22:00 (NS Flush) 2 ml BID IV FLUSH 04/03/17 09:00 (Aspirin) 325 mg DAILY PO 04/03/17 09:00 (Lipitor) 40 mg HS PO 04/03/17 21:00 (CeleXA) 30 mg DAILY PO 04/03/17 09:00 (Aricept) 10 mg HS PO 04/03/17 21:00 (Toprol Xl) 50 mg DAILY PO 04/03/17 09:00 (Remeron) 15 mg HS PO 04/03/17 21:00 (Pill Splitter) 1 ea UNSCH PRN OTHER 04/03/17 09:00 Family History There is family history of CAD. Social History Not smoking . Denies alcohol or illicit drugs. Physical Exam Vital Signs Vital Signs Date Time Temp Pulse Resp B/P (MAP) Pulse Ox O2 Delivery O2 Flow Rate FiO2 04/03/17 07:59 95 Nasal Cannula 2.00 04/03/17 07:19 98.2 64 20 119/57 (77) 96 04/03/17 07:01 64 04/03/17 03:33 98.1 67 18 117/58 (77) 97 04/02/17 23:26 Nasal Cannula 2.00 04/02/17 23:22 98.1 67 18 110/62 (78) 97 04/02/17 23:00 59 04/02/17 22:05 63 16 121/63 (82) 96 Nasal Cannula 2.00 04/02/17 20:00 64 16 110/60 (77) 97 Nasal Cannula 2.00 04/02/17 19:00 64 15 118/57 (77) 98 04/02/17 18:11 60 17 93 Room Air 04/02/17 18:11 98 Nasal Cannula 2.00 04/02/17 18:00 98.4 61 16 122/60 (80) 93 Physical Exam GENERAL: This is a well-nourished, well-developed patient, in no apparent distress. Patient speaks in clear complete sentences. Patient is pleasant. HEENT: Head is atraumatic and normocephalic. Neck is supple without lymphadenopathy and trachea is midline. No JVD or carotid bruits. CARDIOVASCULAR: Regular rate and rhythm without murmurs, gallops, or rubs. RESPIRATORY: Clear to auscultation. Breath sounds equal bilaterally. No wheezes , rales, or rhonchi. Chest wall is nontender. No use of accessory muscles. GASTROINTESTINAL: Abdomen is nontender, nondistended. Abdomen soft. No obvious pulsatile mass or bruit. No CVA tenderness. Strong femoral pulses bilaterally. Normal bowel sounds in all quadrants. MUSCULOSKELETAL: Patient is moving upper and lower extremities freely. No calf tenderness or edema, no Homans sign. Strong pulses in upper and lower extremities. NEUROLOGICAL: Patient is alert and oriented. Cranial nerves 2-12 are grossly intact. No focal deficits and speech is clear. SKIN: No rash and turgor is normal. Laboratory Laboratory Tests Test 04/02/17 18:50 04/02/17 22:00 04/03/17 01:23 White Blood Count 5.9 Red Blood Count 3.89 Hemoglobin 12.2 Hematocrit 36.2 Mean Corpuscular Volume 93.2 Mean Corpuscular Hemoglobin 31.4 Mean Corpuscular Hemoglobin Concent 33.7 Red Cell Distribution Width 13.8 Platelet Count 170 Mean Platelet Volume 9.0 Neutrophils (%) (Auto) 63.9 Lymphocytes (%) (Auto) 18.2 Monocytes (%) (Auto) 12.4 Eosinophils (%) (Auto) 4.5 Basophils (%) (Auto) 1.0 Neutrophils # (Auto) 3.8 Lymphocytes # (Auto) 1.1 Monocytes # (Auto) 0.7 Eosinophils # (Auto) 0.3 Basophils # (Auto) 0.1 CBC Comment DIFF FINAL Differential Comment Prothrombin Time 10.1 Prothromb Time International Ratio 1.0 Activated Partial Thromboplast Time 21.9 Blood Urea Nitrogen 33 Creatinine 1.76 Random Glucose 109 Total Protein 7.2 Albumin 3.6 Calcium Level 8.8 Magnesium Level 2.1 Alkaline Phosphatase 73 Aspartate Amino Transf (AST/SGOT) 20 Alanine Aminotransferase (ALT/SGPT) 24 Total Bilirubin 0.3 Sodium Level 139 Potassium Level 4.2 Chloride Level 104 Carbon Dioxide Level 28.0 Anion Gap 7 Estimat Glomerular Filtration Rate 38 Troponin I LESS THAN 0.02 LESS THAN 0.02 LESS THAN 0.02 Total Creatine Kinase 125 133 Creatine Kinase MB 2.5 2.4 Result Diagram: 04/02/17184904/02/17 185 Imaging Last 48 hours Impressions Chest X-Ray 04/02/17 1838 Signed Impressions: Service Date/Time: Sunday, April 02, 2017 19:04 - CONCLUSION: No acute cardiopulmonary disease. Venice Zaragoza MD Course EKGs have sinus rhythm with sinus bradycardia without significant ST segment depressions or elevations. Caprini VTE Risk Assessment Caprini VTE Risk Assessment: Mod/High Risk (score >= 2) Caprini Risk Assessment Model Point Value = 1 Point Value = 2 Point Value = 3 Point Value = 5 Age 41-60 Minor surgery BMI > 25 kg/m2 Swollen legs Varicose veins or History of unexplained or recurrent spontaneous Oral contraceptives or hormone replacement Sepsis (< 1 month) Serious lung disease, including pneumonia (< 1 month) Abnormal pulmonary function Acute myocardial infarction Congestive heart failure (< 1 month) History of inflammatory bowel disease Medical patient at bed rest Age 61-74 Arthroscopic surgery Major open surgery (> 45 min) Laparoscopic surgery (> 45 min) Malignancy Confined to bed (> 72 hours) Immobilizing plaster cast Central venous access Age >= 75 History of VTE Family history of VTE Factor V Leiden Prothrombin [id number] Lupus anticoagulant Anticardiolipin antibodies Elevated serum homocysteine Heparin-induced thrombocytopenia Other congenital or acquired thrombophilia Stroke (< 1 month) Elective arthroplasty Hip, pelvis, or leg fracture Acute spinal cord injury (< 1 month) Prophylaxis Regimen Total Risk Factor Score Risk Level Prophylaxis Regimen 0-1 Low Early ambulation 2 Moderate Order ONE of the following: *Sequential Compression Device (SCD) *Heparin 5000 units SQ BID 3-4 Higher Order ONE of the following medications: *Heparin 5000 units SQ TID *Enoxaparin/Lovenox 40 mg SQ daily (WT < 150 kg, CrCl > 30 mL/min) *Enoxaparin/Lovenox 30 mg SQ daily (WT < 150 kg, CrCl > 10-29 mL/min) *Enoxaparin/Lovenox 30 mg SQ BID (WT < 150 kg, CrCl > 30 mL/min) AND/OR *Sequential Compression Device (SCD) 5 or more Highest Order ONE of the following medications: *Heparin 5000 units SQ TID (Preferred with Epidurals) *Enoxaparin/Lovenox 40 mg SQ daily (WT < 150 kg, CrCl > 30 mL/min) *Enoxaparin/Lovenox 30 mg SQ daily (WT < 150 kg, CrCl > 10-29 mL/min) *Enoxaparin/Lovenox 30 mg SQ BID (WT < 150 kg, CrCl > 30 mL/min) AND *Sequential Compression Device (SCD) Assessment and Plan Assessment and Plan * Chest pain: Patient had serial cardiac enzymes and EKGs for ruling out purposes. He was seen by Dr. Pitts cardiology and the chest pain center. He had a small or moderate reversibility on a stress test in October of this year. Plan options were discussed with the patient including cardiac catheterization. He has chronic kidney disease and is thought this could put him in renal failure hemodialysis and patient does not want to entertain recatheterization at this time. Second option was to adjust medications and third option was to keep him on medication he is at currently and follow him closely with Dr. Pitts in the office. Patient states he's feeling much better now and would rather change nothing and follow back with Dr. Pitts. Reviewing the monitor he went into a nonsustained PSVT about [address] Pitts is to arrange a Holter monitor to the office and see him in her office afterwards. Patient's should certainly return to ED for interval issues. * CAD: Continue medications. Follow-up with Dr. Pitts. * Hypertension: Continue current medication. 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 * Hyperlipidemia: Continue current medication. Patient is stable at this time. He is agreeable to this plan. Mariusz Ramírez Apr 03, 2017 08:59
[2017-04-03] MEDS ORDERED: CITALOPRAM HYDROBROMIDE 20 MG TAB PO SCH (09:00)
[2017-04-03] MEDS ORDERED: SODIUM CHLORIDE 0.9% FLUSH 10 ML FLUSH IV FLUSH SCH (09:00)
[2017-04-03] MEDS ORDERED: PILL SPLITTER OTHER PRN (09:00)
[2017-04-03] MEDS ORDERED: METOPROLOL SUCCINATE 50 MG EXTENDED RELEASE TAB PO SCH (09:00)
[2017-04-03] MEDS ORDERED: ASPIRIN 325 MG TAB PO SCH (09:00)
--- NOTE | 2017-04-03 09:16 | HHI.DCPOC ---
Discharge Care Plan Diagnosis: (1) Chest pain (2) CAD (coronary artery disease) (3) H/O heart artery stent (4) Hypertension (5) Hyperlipidemia (6) Chronic kidney disease Goals to Promote Your Health * To prevent worsening of your condition and complications * To maintain your health at the optimal level Directions to Meet Your Goals Take your medications as prescribed Follow your dietary instruction Follow activity as directed Keep your appointments as scheduled Take your immunizations and boosters as scheduled If your symptoms worsen call your PCP, if no PCP go to Urgent Care Center or Emergency Room Smoking is Dangerous to Your Health. Avoid second hand smoke Call the 24-hour hour crisis hotline for domestic abuse at Mariusz Ramírez Apr 03, 2017 09:16
[2017-04-03 09:34] VITALS: BP 122/59; PULSE 68
--- NOTE | 2017-04-03 19:30 | EKG ---
Date Performed: 04/02/2017 Time Performed: 21:59:50 PTAGE: 81 years EKG: SINUS BRADYCARDIA WITH OCCASIONAL VENTRICULAR PREMATURE COMPLEXES POSSIBLE RIGHT VENTRICULA R CONDUCTION DELAY NONSPECIFIC T-WAVE ABNORMALITY BORDERLINE ECG Since PREVIOUS TRACING , no significant change noted PREVIOUS TRACIN04/02/2017 18.12 DOCTOR: Idalia Pitts Interpretating Date/Time 04/03/2017 19:30:37
--- NOTE | 2017-04-03 19:30 | EKG ---
Date Performed: 04/02/2017 Time Performed: 18:12:56 PTAGE: 81 years EKG: SINUS BRADYCARDIA WITH OCCASIONAL VENTRICULAR PREMATURE COMPLEXES POSSIBLE RIGHT VENTRICULA R CONDUCTION DELAY BORDERLINE ECG Since PREVIOUS TRACING , no significant change noted DOCTOR: Idalia Pitts Interpretating Date/Time 04/03/2017 19:29:13
--- NOTE | 2017-04-03 19:33 | EKG ---
Date Performed: 04/03/2017 Time Performed: 01:06:01 PTAGE: 81 years EKG: Sinus rhythm POSSIBLE RIGHT VENTRICULAR CONDUCTION DELAY BORDERLINE ECG Since PREVIOUS TRACING , no significant change noted PREVIOUS TRACIN04/02/2017 21.59 DOCTOR: Idalia Pitts Interpretating Date/Time 04/03/2017 19:32:08
[2017-04-03] MEDS ORDERED: DONEPEZIL HCL 5 MG TAB PO SCH (21:00)
[2017-04-03] MEDS ORDERED: MIRTAZAPINE 15 MG TAB PO SCH (21:00)
[2017-04-03] MEDS ORDERED: ATORVASTATIN 40 MG TAB PO SCH (21:00)
== END 2017-04-03 11:08 | disposition home or self-care (01) ==
LOC: NEPE 17:54 → NEDA 20:32 → NEPFCDU 22:12
PROVIDERS: ADMIT Internal Medicine Cardiovascular Disease; ATTEND Internal Medicine Cardiovascular Disease
DX: I25.10 Atherosclerotic heart disease of native coronary artery without angina pectoris (principal); Z95.5 Presence of coronary angioplasty implant and graft; I12.9 Hypertensive chronic kidney disease with stage 1 through stage 4 chronic kidney disease, or unspecified chronic kidney disease; E78.5 Hyperlipidemia, unspecified; N18.9 Chronic kidney disease, unspecified; I25.2 Old myocardial infarction; R11.2 Nausea with vomiting, unspecified; M19.90 Unspecified osteoarthritis, unspecified site; F41.9 Anxiety disorder, unspecified; F32.9 Major depressive disorder, single episode, unspecified; J44.9 Chronic obstructive pulmonary disease, unspecified; K21.9 Gastro-esophageal reflux disease without esophagitis; Z79.899 Other long term (current) drug therapy; R00.1 Bradycardia, unspecified; R55 Syncope and collapse; R42 Dizziness and giddiness
CPT/HCPCS: 71045; 80053; 82550; 82552; 83735; 84484; 85025; 85610; 85730; 93005; 99285; G0378